=== PATIENT | female | born 1995 | race Caucasian/White ===

== ENCOUNTER 2017-12-03 22:23 | Inpatient (IN) ==
[2017-12-03] MEDS ORDERED: BUTORPHANOL 2 MG/ML VIAL IV PRN (22:37)
[2017-12-03] MEDS ORDERED: CITRIC ACID/SODIUM CITRATE 30 ML UDCUP PO ONE (22:39)
[2017-12-03] MEDS ORDERED: FAMOTIDINE 20 MG/2 ML VIAL IV ONE (22:39)
[2017-12-03] MEDS: LACTATED RINGERS 1,000 ML IV SCH ×2 (22:50→23:31)
[2017-12-03] MEDS ORDERED: AMPICILLIN 2,000 MG VIAL ONE (22:54)
[2017-12-03] MEDS ORDERED: SODIUM CHLORIDE 0.9% 100 ML IV ONE (22:54)
[2017-12-03 22:55] LABS: Basophils % 0.1 % (0.0-0.8); Eosinophils # 0.1 10*3/uL (0.0-0.87); Hematocrit 31.5 VOL% (35.7-47.0); Hemoglobin 10.5 GM/DL (12.0-16.0); Immature Granulocytes % 0.8 %; Immature Granulocytes Absolute 0.08 #; Lymphocytes % 21.1 % (21.3-54.2); Mean Corpuscular HGB Conc 33.3 GM/DL (32-36); Mean Corpuscular Hemoglobin 30 PG (27-34); Mean Corpuscular Volume 90.5 FL (87-102); Mean Platelet Volume 11.4 FL (9.6-12.0); Monocytes # 0.6 10*3/uL (0.11-0.8); Monocytes % 6.7 % (1.7-12.7); Neutrophils # 6.6 10*3/uL (1.4-7.4); Neutrophils % 70.3 % (38.7-73.9); Platelet Count 148 T/CUMM (130-400); Red Blood Count 3.48 MC/CUMM (3.8-5.5); Red Cell Distribution Width 13.3 % (9.3-17.3); White Blood Count 9.4 T/CUMM (4-12)
[2017-12-03] MEDS ORDERED: fentaNYL 2 MCG/ROPIV 0.2% EPID 100 ML EPIDURAL SCH (23:00)
[2017-12-03] MEDS: MEPERIDINE 50 MG/1 ML VIAL IV PRN (23:05)
[2017-12-03] MEDS: ONDANSETRON 4 MG/2 ML VIAL IV PRN (23:05)
[2017-12-03 23:23] LABS: Alanine Aminotransferase 16 U/L (13-56); Albumin 2.7 G/DL (3.4-5.0); Alkaline Phosphatase 131 U/L (45-117); Aspartate Amino Transferase 16 U/L (0-37); Bilirubin,Total < 0.39 MG/DL (0.2-1.0); Blood Urea Nitrogen 9 MG/DL (7-18); Glucose 83 MG/DL (74-106); Osmolality,Calculated 274.5 MOS/KG (273-304); Potassium 3.7 MMOL/L (3.5-5.1); Sodium 139 MMOL/L (136-145); Total Protein 6.8 G/DL (6.4-8.3)
[2017-12-03 23:27] LABS: Apearance,Urine CLEAR (Clear); Bilirubin,Urine Negative (Negative); Blood, Urine Small mg/dL (Negative); Glucose,Urine (UA) Negative (Negative); Ketones,Urine Negative (Negative); Mucus,Urine Occasional /LPF (Occasional); Nitrite,Urine Negative (Negative); Protein,Urine Negative; RBC,Urine <1 /HPF (0-4); Squamous Epithelial Cell,Urine Occasional /HPF (0-10); Urine Color Straw (Yellow); Urine Specific Gravity 1.008 (1.001-1.035); Urine Urobilinogen < 2.0 EU/DL (0.2-1.0); WBC,Urine 2 /HPF (0-6)
[2017-12-03] MEDS ORDERED: CLINDAMYCIN INJ 900 MG in PREMIX 1 EACH IV SCH (23:30)
[2017-12-04] MEDS: LACTATED RINGERS 1,000 ML IV SCH (00:51)
[2017-12-04] MEDS ORDERED: miSOPROStol 200 MCG TABLET ONE (00:59)
[2017-12-04] MEDS ORDERED: LIDOCAINE 1% 50 ML VIAL ONE (00:59)
[2017-12-04] MEDS ORDERED: TRANEXAMIC ACID 1,000 MG/10 ML VIAL ONE (01:00)
[2017-12-04] MEDS ORDERED: METHYLERGONOVINE 0.2 MG/1 ML AMP ONE (01:00)
[2017-12-04] MEDS ORDERED: OXYTOCIN/LR 20 UNIT/1,000 ML BAG IV ONE ×2 (01:00→01:52)
[2017-12-04] MEDS ORDERED: LANOLIN 50% CREAM 0.3 OZ TUBE TOP PRN (01:52)
[2017-12-04] MEDS ORDERED: ACETAMINOPHEN 325 MG TABLET PO PRN (01:52)
[2017-12-04] MEDS ORDERED: HYDROCORTISONE 2.5% RECTAL CREAM 30 GM TUBE TOP PRN (01:52)
[2017-12-04] MEDS ORDERED: BENZOCAINE 20%/MENTHOL 0.5% SPRAY 56 GM CAN TOP PRN (01:52)
[2017-12-04] MEDS ORDERED: BISACODYL 10 MG SUPP RECTAL PRN (01:52)
[2017-12-04] MEDS ORDERED: WITCH HAZEL PADS 100/JAR TOP PRN (01:52)
[2017-12-04] MEDS ORDERED: ONDANSETRON 4 MG/2 ML VIAL IV PRN (01:52)
[2017-12-04] MEDS ORDERED: oxyCODONE/ACETAMINOPHEN 5-325 MG TABLET PO PRN (01:52)
[2017-12-04] MEDS ORDERED: MEASLES/MUMPS/RUBELLA VACCINE 0.5 ML VIAL SUBCUT ONE (01:52)
[2017-12-04] MEDS ORDERED: DIPH/TET/ACEL PERT BOOSTER VACCINE 0.5 ML VIAL IM ONE (01:52)
[2017-12-04] MEDS ORDERED: RHO(D) IMMUNE GLOBULIN 300 MCG SYRINGE IM ONE (01:52)
[2017-12-04] MEDS ORDERED: SUMAtriptan 6 MG/0.5 ML VIAL SUBCUT ONE ×2 (02:00→15:30)
[2017-12-04] MEDS: BUTALBITAL/ACETAMIN/CAFFEINE 50-325-40 MG TABLET PO SCH ×4 (02:07→20:17)
[2017-12-04] MEDS: IBUPROFEN 800 MG TABLET PO PRN ×3 (05:06→19:24)
[2017-12-04] MEDS: oxyCODONE/ACETAMINOPHEN 5-325 MG TABLET PO PRN ×3 (05:07→19:27)
[2017-12-04] MEDS: ONDANSETRON 4 MG/2 ML VIAL IV PRN (05:08)
[2017-12-04] MEDS: LEVOTHYROXINE 88 MCG TABLET PO SCH (07:36)
[2017-12-04] MEDS: DOCUSATE SODIUM 100 MG CAPSULE PO SCH ×2 (08:58→20:34)
[2017-12-04 09:17] LABS: Basophils % 0.1 % (0.0-0.8); Eosinophils % 0.1 % (0.00-10.9); Hematocrit 25.9 VOL% (35.7-47.0); Hemoglobin 8.8 GM/DL (12.0-16.0); Immature Granulocytes % 0.6 %; Immature Granulocytes Absolute 0.08 #; Lymphocytes # 1.5 10*3/uL (1.4-4.0); Lymphocytes % 11.7 % (21.3-54.2); Mean Corpuscular Hemoglobin 31 PG (27-34); Mean Corpuscular Volume 90.6 FL (87-102); Mean Platelet Volume 11.7 FL (9.6-12.0); Monocytes # 0.9 10*3/uL (0.11-0.8); Neutrophils # 10.7 10*3/uL (1.4-7.4); Neutrophils % 80.5 % (38.7-73.9); Platelet Count 129 T/CUMM (130-400); Red Blood Count 2.86 MC/CUMM (3.8-5.5); Red Cell Distribution Width 13.2 % (9.3-17.3); White Blood Count 13.2 T/CUMM (4-12)
[2017-12-04] MEDS ORDERED: SUMAtriptan 6 MG/0.5 ML VIAL SUBCUT SCH (10:00)
[2017-12-04] MEDS ORDERED: MEPERIDINE 50 MG/1 ML VIAL IM ONE (10:13)
[2017-12-04] MEDS: MEPERIDINE 50 MG/1 ML VIAL IV PRN (10:24)
[2017-12-04] MEDS: FERROUS SULFATE 325 MG TABLET PO SCH ×2 (12:25→20:40)
[2017-12-05] MEDS: BUTALBITAL/ACETAMIN/CAFFEINE 50-325-40 MG TABLET PO SCH (01:54)
[2017-12-05] MEDS ORDERED: MIDAZOLAM 2 MG/2 ML VIAL ONE (08:01)
[2017-12-05] MEDS ORDERED: LACTATED RINGERS 1,000 ML IV ONE (08:13)
[2017-12-05] MEDS ORDERED: INFLUENZA VIRUS VACCINE 0.5 ML SYRINGE IM ONE (09:00)
[2017-12-05] MEDS ORDERED: ACETAMINOPHEN 1,000 MG/100 ML VIAL IV ONE (09:33)
[2017-12-05] MEDS: LEVOTHYROXINE 88 MCG TABLET PO SCH (18:10)
[2017-12-05] MEDS: FERROUS SULFATE 325 MG TABLET PO SCH ×2 (18:10→21:08)
[2017-12-05] MEDS: DOCUSATE SODIUM 100 MG CAPSULE PO SCH ×2 (18:10→21:08)
[2017-12-05] MEDS: IBUPROFEN 800 MG TABLET PO PRN (22:31)
[2017-12-06 07:33] VITALS: BP 103/63
[2017-12-06] MEDS: FERROUS SULFATE 325 MG TABLET PO SCH (08:45)
[2017-12-06] MEDS: DOCUSATE SODIUM 100 MG CAPSULE PO SCH (08:45)
[2017-12-06] MEDS: LEVOTHYROXINE 88 MCG TABLET PO SCH (08:48)
[2017-12-06] MEDS ORDERED: INFLUENZA VIRUS VACCINE 0.5 ML SYRINGE IM ONE (10:00)
[2017-12-06] MEDS ORDERED: DIPH/TET/ACEL PERT BOOSTER VACCINE 0.5 ML VIAL IM ONE (10:00)
== END 2017-12-06 11:35 | disposition home or self-care (01) | DRG 807 ==
LOC: N.LDOUT 22:23 → N.LD 22:26 → N.OB 12-04 04:04
PROVIDERS: ADMIT Obstetrics & Gynecology; ATTEND Specialist